=== PATIENT | male | born 1960 | race Caucasian/White ===

== ENCOUNTER 2020-04-10 14:16 | Inpatient (IN) | payer OTHER ==
[~2020-04-10] VITALS: Ht 162.6 cm; Wt 108.5 kg
[2020-04-10 14:19] VITALS: BP 164/108
[2020-04-10 14:49] LABS: ABSOLUTE EOSINOPHILS 0.2 thou/uL (0.0-0.7); ABSOLUTE LYMPHOCYTES 2.2 thou/uL (0.8-5.3); ABSOLUTE MONOCYTES 0.7 thou/uL (0.0-1.2); ABSOLUTE NEUTROPHILS 4.3 thou/uL (1.6-8.1); BASOPHILS 0.6 %; HEMATOCRIT 46.6 % (42.0-52.0); HEMOGLOBIN 15.8 gm/dL (14.0-18.0); LYMPHOCYTES 29.5 %; MCH 29.7 pg (26.0-34.0); MCHC 33.9 g/dL (28.0-37.0); MCV 87.7 fL (80.0-100.0); MONOCYTES 9.2 %; MPV 7.3 fl. (7.2-11.1); NUCLEATED RBCS 0 /100WBC; PLATELET COUNT* 243 thou/uL (150-400); POLYS 57.7 %; RBC 5.32 mil/uL (4.50-6.00); RDW-CV 13.9 % (10.5-14.5); WBC 7.4 thou/uL (4.0-11.0)
[2020-04-10 14:53] LABS: CALCIUM 8.8 mg/dL (8.5-10.1); POTASSIUM 3.6 mmol/L (3.5-5.1); PROTIME 10.4 Seconds (9.20-11.50)
[2020-04-10 14:58] LABS: ALBUMIN 3.5 g/dL (3.4-5.0); TOTAL BILIRUBIN 0.4 mg/dL (<0.1-1.0); TOTAL PROTEIN 7.6 g/dL (6.4-8.2)
[2020-04-10 17:20] LABS: URINE BILIRUBIN NEGATIVE (Negative); URINE BLOOD TRACE (Negative); URINE CLARITY CLEAR; URINE COLOR YELLOW; URINE GLUCOSE-RANDOM NEGATIVE (Negative); URINE KETONES NEGATIVE (Negative); URINE LEUKOCYTES NEGATIVE (Negative); URINE NITRITE NEGATIVE (Negative); URINE PROTEIN NEGATIVE (Negative); URINE SPECIFIC GRAVITY 1.015 (1.005-1.030); URINE UROBILINOGEN 0.2 E.U./dl (0.2-1.0)
[2020-04-10 20:27] VITALS: BP 154/103
[2020-04-11 02:06] LABS: GLYCOHEMOGLOBIN (HGB A1C) 6.1 % (4.8-5.6)
--- NOTE | 2020-04-11 17:26 | EKG ---
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 : 1960 Requested By: Trino Miranda Order Number: [id number] MD: Masood Cespedes Measurements Intervals [place] Rate: 75 P: 61 SC: 172 QRS: 81 QRSD: 95 T: 90 QT: 391 QTc: 437 Interpretive Statements Sinus rhythm Borderline right axis deviation Nonspecific T abnrm, anterolateral leads No previous ECG available for comparison Electronically Signed On 04-11-2020 17:26:10 CDT by Masood Cespedes [email or web address] <ELECTRONICALLY SIGNED> By: Masood Cespedes MD, [facility] 04/11/20 1726 1436 1436 Masood Cespedes MD, [facility] /EPI
--- NOTE | 2020-04-13 03:46 | CON ---
[address] [address] CONSULTATION Name: SINDY FLANAGAN Room: [address] IN M.R.#: [id number] Admission: 04/10/20 Attend Phys: Nakul Blake MD Discharge: 04/10/20 Date of : 56 Report #: [id number] THIS REPORT FOR: //name// cc: DELICIA Trujillo family physician/PCP DELICIA Trujillo family physician/PCP ~ THIS REPORT FOR: //name// CC: Nakul Blake FAM physician/PCP DATE OF SERVICE: 04/10/2020 HISTORY OF PRESENT ILLNESS: This is a 59-year-old male patient who was evaluated by me for stroke. The patient was discussed with Dr. Miranda from Emergency Room initially and subsequently I discussed the patient with Dr. Blake and we saw the patient actually to gather. The patient is a poor historian. Initially was not here and he gave a history that he was not feeling well since he woke up, however, his not feeling well is not clear. He was not thinking straight and was not walking properly when I pushed him. Then, around 1:30 he was having some walking difficulty, but it is not possible to say because he was having some trouble even before. He came to Emergency Room and Emergency Room physician offered him TPA, but he declined that. When I saw him, he said he was feeling better. His speech was getting better. His NIH score when he came in was 7, but started to improve after that. When I asked him why he does not want TPA, he indicated that he is improving and he does not want TPA. REVIEW OF SYSTEMS: Initially from the patient was poor. He smokes and drinks alcohol. He says he did not have any stroke in the past. He was hypotensive here. It is not clear if it is reactive hypertension or he is hypertensive in the baseline. In fact, it is not clear what his baseline blood pressure is. That is all the review of system I could get from him. PAST MEDICAL HISTORY: Negative for stroke. FAMILY HISTORY: According to him, negative for early age stroke. SOCIAL HISTORY: He is a heavy smoker and he is every day alcohol drinker. PHYSICAL EXAMINATION: When I saw him, the patient was alert. He was responsive. His speech was somewhat labored, but he was still able to talk. He knew what month it was, but his memory looks somewhat poor. His cranial nerve examination 2-12 was carried out. His cooperation was not very good, but he does appear to have some hemianopsia. I cannot localize it because his cooperation is not poor. The maximum I noticed was on the right eye in the temporal area. He is, to some extent, weak in all 4 extremities, [place] [address] CONSULTATION Name: SINDY FLANAGAN Room: [address] IN .R.#: [id number] Admission: 04/10/20 Attend Phys: Nakul Blake MD Discharge: 04/10/20 Date of : 56 Report #: [id number] weakness has started to improve and his drift in the arm has started to become better. There is no meningeal sign in this patient. LABORATORY DATA: White count was normal. His CMP was unremarkable. ASSESSMENT AND PLAN: I reviewed his CT scan of the head, which did not show any abnormality. So, I suggest getting an MRI of the head and MRA of the head and neck done. This is because he claimed that he was ALLERGIC TO DYE. He told me he was SEVERELY ALLERGIC TO DYE then I got altogether different history from the later on, which will be summarized below. The stroke was suspected in this patient and a stat MRI was done because of his history of ALLERGIC TO DYE. MRI demonstrated multiple small stroke, but there appeared to be predominantly in the posterior circulation. When combined with the finding of MRA, which demonstrated basilar artery pathology that will indicate the patient may be embolizing from there and dissection could be considered. Question has been raised by our radiologist also who is astronomy instructor and happened to be neuroradiologist. I had multiple discussions with the patient and Dr. Blake. Subsequently, the patient's came and she provided history that he is not aware of the fact that the patient ever got the dye, but HE IS ALLERGIC TO THE SHELLFISH. I discussed the situation with them and his TPA window was gone and I am not sure whether he was even in the window before, but I talked to the stroke team. They agreed to accept him if the patient is willing to do whatever they recommend after their evaluation, especially if he needs an invasive procedure. I discussed that with the patient and the and discussed with them that the option of conservative and aggressive treatment is available, but either way, I think he should be in a bigger center where vascular neurologists are available and should be managed by them rather than a [facility]. This is because I expect him to withdraw both from alcohol as well as from nicotine. His blood pressure is expected to fluctuate and he may deteriorate any time and even if they do not do intervention now he should be in that bigger facility where intervention can be done if it is considered unnecessary and the nurses will do more accustom to taking care of the stroke patient. Finally, he agreed to go to [facility] after talking to him and after talking to him pros and cons of all the approaches. Subsequently, I talked to Dr. Blake and he was going to talk to Dr. Miranda and I recommended that we made see things clear to stroke team at [facility] is that THE PATIENT IS NOT ALLERGIC TO DYE, BUT HE IS ALLERGIC TO SHELLFISH, that clinically he has improved and whether they want to go ahead and give the patient Plavix 600 mg before transfer and if they want we should give that before he is transferred. Dr. Blake was going to admit it to Dr. Miranda, but to be on safe side, I called Dr. Miranda myself in the Emergency Room [place] [address] CONSULTATION Name: SINDY FLANAGAN Room: [address] IN [facility]#: [id number] Admission: 04/10/20 Attend Phys: Nakul Blake MD Discharge: 04/10/20 Date of : 56 Report #: [id number] in the process of transferring the patient and I told him that as soon as he talked to the stroke neurologist there. I called myself and I talked to Dr. Miranda and conveyed to him that he should talk to the stroke neurologist at [facility] and asked them all three questions if they are okay with that give him 600 mg of Plavix before he leaves. Subsequently, I talked to team twice and told them that the patient has agreed to transfer and we need to ask these 3 questions from the vascular neurologist there and in fact, during this dictation, a second call came and I asked him to ask the vascular neurologist at the same question and let the ER doctor know that I believe the best place for him is under the care of a vascular neurologist and in a tertiary care center where all kind of facility is available rather than being here. It is possible it is dissection, but tapping to the vascular neurologist at . He indicated that they need to make sure that there is a dissection and not the stenosis or occlusion. I will defer further evaluation and management to them, but hopefully the patient will be transferred to [facility] as soon as possible and further management will be deferred to them. I spent more than 70 minutes of time taking care of this patient and majority of that time was spent counseling and coordinating and after talking to multiple health health care facilities inspector and after talking to the patient and multiple times. Thank you very much for this referral and if you have any question, please feel free to contact me. <ELECTRONICALLY SIGNED> By: Abhishek Dennison MD 04/13/20 0346 19 Pdominick Dennison MD /nt
== END 2020-04-10 20:25 | disposition short-term general hospital (02) | DRG 66 ==
LOC: M.ERS 14:16 → M.TBA-ER 15:03
PROVIDERS: Emergency Medicine Emergency Medical Services; ADMIT Internal Medicine; ATTEND Internal Medicine
DX: I63.9 Cerebral infarction, unspecified (principal); I10 Essential (primary) hypertension; F17.210 Nicotine dependence, cigarettes, uncomplicated; I16.0 Hypertensive urgency; Z03.818 Encounter for observation for suspected exposure to other biological agents ruled out; Z91.041 Radiographic dye allergy status; Z91.013 Allergy to seafood